=== PATIENT | female | born 1990 | race African-American/Black ===

== ENCOUNTER → 2017-09-03 | Outpatient (CLI) | payer OTHER ==
[2016-10-17 19:38] VITALS: BP 128/78
[~2017-09-03] MED LIST: OXYC-323 PO; PENI500T PO; PRED-220 PO; PREDNISONE; SULF1TAB23 PO; TRAM-48 PO
--- NOTE | 2017-09-03 14:43 | RAD ---
Obstetrical ultrasound, 09/03/2017: History: Check size and dates There is a single intrauterine fetus in a cephalic orientation. The biparietal diameter measures 4.6 cm compatible with a gestational age of approximately 20 weeks. This corresponds well to the other measurements and yields a sonographic EDC of 01/20/2018. Normal activity and heart motion were seen. The heart rate was 120 bpm. No specific abnormality is detected. A normal amount of amniotic fluid is evident. The placenta lies anteriorly. The cervix is not clearly defined but it is estimated to be approximately 5 cm in length. There is no evidence of placenta previa. The maternal ovaries were not visualized. IMPRESSION: Single viable intrauterine fetus of approximately 20 weeks gestational age as noted.
== END | disposition home or self-care (01) ==
LOC: US 10:15
PROVIDERS: ATTEND Obstetrics & Gynecology
DX: O09.92 Supervision of high risk pregnancy, unspecified, second trimester (principal); O26.842 Uterine size-date discrepancy, second trimester; Z3A.20 20 weeks gestation of pregnancy
CPT/HCPCS: 76805

== ENCOUNTER → 2017-11-06 | Outpatient (CLI) | payer OTHER ==
[2017-11-06 10:25] LABS: BASO % 1 % (0-3); EOS % 1 % (0-3); HEMATOCRIT 25.3 % (36.0-47.0); HEMOGLOBIN 7.9 g/dL (12.0-15.5); LYMPH # 0.4 x10^3/uL (1.0-4.8); LYMPH % 4 % (24-48); MEAN CORPUSCULAR HEMOGLOBIN 22 pg (25-35); MEAN CORPUSCULAR HGB CONC 31 g/dL (31-37); MEAN CORPUSCULAR VOLUME 71 fL (79-100); MONO % 8 % (0-9); NEUT % 87 % (31-73); PLATELET COUNT 410 x10^3/uL (140-400); RED BLOOD COUNT 3.57 x10^6/uL (3.50-5.40); RED CELL DISTRIBUTION WIDTH 18.3 % (11.5-14.5); WHITE BLOOD COUNT 9.3 x10^3/uL (4.0-11.0)
[2017-11-06 10:36] LABS: ADD MAN DIFF? YES
[2017-11-06 12:11] LABS: ANISOCYTOSIS SLIGHT; HYPOCHROMIA SLIGHT; PLT ESTIMATE ADEQUATE (ADEQUATE)
== END | disposition home or self-care (01) ==
LOC: LAB 09:04
DX: O09.93 Supervision of high risk pregnancy, unspecified, third trimester (principal); Z3A.29 29 weeks gestation of pregnancy
CPT/HCPCS: 36415; 82950; 85007; 85025

== ENCOUNTER 2018-04-06 08:47 | Emergency (ER) | payer OTHER | END 2018-04-06 09:14 | disposition home or self-care (01) | LOC: ER 08:47 | DX: N61.1 Abscess of the breast and nipple (principal); K50.90 Crohn's disease, unspecified, without complications | CPT/HCPCS: 99283 ==

== ENCOUNTER 2018-06-21 15:16 | Emergency (ER) | payer OTHER ==
[~2018-06-21] VITALS: Ht 167.6 cm; Wt 63.5 kg
[~2018-06-21 15:16] MED LIST changes: +CEPH500T PO
[2018-06-21 15:50] VITALS: BP 113/72
[2018-06-21] MEDS ORDERED: IBUPROFEN 800 MG TABLET. PO ONE (16:00)
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
--- NOTE | 2018-06-21 16:50 | RAD ---
Left index finger, 3 views, 06/21/2018: HISTORY: Fall, injury No fracture or dislocation is identified. The soft tissues are unremarkable. IMPRESSION: No acute bony abnormality is detected. Cervical spine, 3 views, 06/21/2018: HISTORY: Fall, pain No fracture or dislocation is identified. The intervertebral disc spaces are well-maintained. The prevertebral soft tissues are unremarkable. IMPRESSION: No acute cervical spine abnormality is detected. Electronically signed by: Heladio Briceno MD (06/21/2018 4:46 PM) [facility]
[2018-06-21] MEDS ORDERED: IBUP-1060 PO (17:05)
[2018-06-21] MEDS ORDERED: CYCL5TAB PO (17:05)
== END 2018-06-21 17:18 | disposition home or self-care (01) ==
LOC: ER 15:16
DX: S63.611A Unspecified sprain of left index finger, initial encounter (principal); S16.1XXA Strain of muscle, fascia and tendon at neck level, initial encounter; V46.4XXA Person boarding or alighting a car injured in collision with other nonmotor vehicle, initial encounter; Y93.89 Activity, other specified; Y99.8 Other external cause status; Y92.488 Other paved roadways as the place of occurrence of the external cause
CPT/HCPCS: 72040; 73140; 99284

== ENCOUNTER 2021-03-17 06:03 | Emergency (ER) | payer MEDICAID, OTHER ==
[~2021-03-17] VITALS: Ht 170.2 cm; Wt 79.7 kg
[~2021-03-17 06:03] MED LIST changes: +CYCL5TAB PO; +IBUP-1060 PO; -OXYC-323 PO; +OXYC1TAB15 PO
[2021-03-17 06:05] VITALS: BP 139/89
--- NOTE | 2021-03-17 06:19 | PHYS DOC ---
Past Medical History Past Medical History: Other Additional Past Medical Histor: Crohns Past Surgical History: Smoking Status: Never Smoker Alcohol Use: Occasionally Drug Use: None General Adult EDM: Chief Complaint: DENTAL PROBLEM HPI: HPI: Patient is a 30 year old female who presented to ER for evaluation of left lower dental pain and swelling for the last few days. Patient denies any fever, no cough, no nausea vomiting. Patient has been able to open and close her mouth without any problem. Review of Systems: Review of Systems: Constitutional: Denies fever or chills. [] Eyes: Denies change in visual acuity. [] HENT: Denies nasal congestion or sore throat. Positive for dental pain Respiratory: Denies cough or shortness of breath. [] Cardiovascular: Denies chest pain or edema. [] GI: Denies abdominal pain, nausea, vomiting, bloody stools or diarrhea. [] : Denies dysuria. [] Musculoskeletal: Denies back pain or joint pain. [] Integument: Denies rash. [] Neurologic: Denies headache, focal weakness or sensory changes. [] Endocrine: Denies polyuria or polydipsia. [] Lymphatic: Denies swollen glands. [] Psychiatric: Denies depression or anxiety. [] Heart Score: C/O Chest Pain: N/A Risk Factors: Risk Factors: DM, Current or recent (<one month) smoker, HTN, HLP, family history of CAD, obesity. Risk Scores: Score 0 - 3: 2.5% MACE over next 6 weeks - Discharge Home Score 4 - 6: 20.3% MACE over next 6 weeks - Admit for Clinical Observation Score 7 - 10: 72.7% MACE over next 6 weeks - Early Invasive Strategies Current Medications: Current Medications Medications (Trade) Dose Ordered Sig/Hugh Start Time Stop Time Status Last Admin Dose Admin Lidocaine HCl (Viscous Lidocaine) 15 ml 1X ONCE 03/17/21 06:30 03/17/21 06:31 UNV Allergies: Allergies: Allergies Coded Allergies Type Severity Reaction Last Updated Verified No Known Drug Allergies 02/20/15 No Physical Exam: PE: Constitutional: Well developed, well nourished, no acute distress, non-toxic appearance. [] HENT: Normocephalic, atraumatic, bilateral external ears normal, oropharynx moist, no oral exudates, nose normal. Left lower first molar is swollen with palpable abscess by the gumline. There is no trismus. Eyes: PERRLA, EOMI, conjunctiva normal, no discharge. [] Neck: Normal range of motion, no tenderness, supple, no stridor. [] Cardiovascular:Heart rate regular rhythm, no murmur [] Lungs & Thorax: Bilateral breath sounds clear to auscultation [] Extremities: No tenderness, no cyanosis, no clubbing, ROM intact, no edema. [] Neurologic: Alert and oriented X 3, normal motor function, normal sensory funct ion, no focal deficits noted. [] Psychologic: Affect normal, judgement normal, mood normal. [] Current Patient Data: Vital Signs: Vital Signs Date Time Temp Pulse Resp B/P (MAP) Pulse Ox O2 Delivery O2 Flow Rate FiO2 03/17/21 06:05 98.0 78 18 139/89 (106) 98 98.0 EKG: EKG: [] Course & Med Decision Making: Course & Med Decision Making Pertinent Labs and Imaging studies reviewed. (See chart for details) Indication: abscess Procedure: The patient was positioned appropriately. Local anesthesia was viscous lidocaine. An incision was then made over the apex of the lesion and small amount of blood tinged yellow material was expressed. The patient tolerated the procedure well. Complications: none. Dragon Disclaimer: Lucien Disclaimer: This electronic medical record was generated, in whole or in part, using a voice recognition dictation system. Departure Departure Impression: Primary Impression: Dental abscess Disposition: HOME / SELF CARE / HOMELESS Condition: IMPROVED Referrals: NO PCP (PCP) Follow-up with your dentist on Friday for reevaluation Patient Instructions: Dental Abscess Additional Instructions: Thank you for visiting our Emergency Department. We appreciate you trusting us with your care. If any additional problems come up don't hesitate to return to visit us. Please follow up with your primary care provider so they can plan a dditional care if needed and know about the problem that you had. If symptoms worsen come back to the Emergency Department. Any concerning symptoms that start such as chest pain, shortness of air, weakness or numbness on one side of the body, running high fevers or any other concerning symptoms return to the ER. [facility] [address] [id number] [facility] [address] [place] [address] [facility] [address] [place] [address] [facility] [address] [place] [address] [facility] [address] [place] [address] [facility] [address] [place] [address] [facility] [address] [place] [address] [facility] [address] [place] [address] [facility] [address] [place] [address] [facility] [address] [place] [address] Scripts Naproxen Sodium (ANAPROX DS) 550 Mg Tablet 1 TAB PO BID PRN for PAIN for 15 Days, #30 TAB 0 Refills Prov: ADRIAN TERRAZAS DO 03/17/21 Amoxicillin (AMOXICILLIN) 500 Mg Capsule 1 CAP PO TID for 10 Days, #30 CAP Prov: ADRIAN TERRAZAS DO 03/17/21 ADRIAN TERRAZAS DO March 17, 2021 06:19
[2021-03-17] MEDS ORDERED: IBUPROFEN 400 MG TABLET. PO ONE (06:30)
[2021-03-17] MEDS ORDERED: LIDOCAINE 2% VISCOUS 15 ML SOLUTION. SWSW ONE (06:30)
[2021-03-17] MEDS ORDERED: AMOXICILLIN 250 MG CAPSULE. PO ONE (06:30)
[2021-03-17] MEDS ORDERED: NAPR-682 PO (06:44)
[2021-03-17] MEDS ORDERED: AMOX500C PO (06:44)
== END 2021-03-17 07:23 | disposition home or self-care (01) ==
LOC: ER 06:03
DX: K04.7 Periapical abscess without sinus (principal)
CPT/HCPCS: 41800; 99284